=== PATIENT | male | born 1940 | race Native Hawaiian/Other Pacific Islander ===

== ENCOUNTER 2018-07-30 10:12 | Outpatient (CLI) | payer OTHER, MEDICARE ==
[2018-07-30 10:46] LABS: POTASSIUM 3.4 mmol/L (3.6-5.2)
== END 2018-07-30 22:11 | disposition home or self-care (01) ==
LOC: LABW 10:12
PROVIDERS: Nurse Practitioner Adult Health
DX: E87.6 Hypokalemia (principal)
CPT/HCPCS: 36415; 80048